=== PATIENT | female | born 1980 | race Hispanic/Latino ===

== ENCOUNTER 2018-11-05 06:27 | Day surgery (SDC) | payer BC ==
[2018-11-05] MEDS ORDERED: NACL 0.9% 500 ML 500 ML IV SCH (07:00)
[2018-11-05 07:10] LABS: Basophils # (Auto) 0.1 K/mm3 (0.0-0.1); Basophils % (Auto) 1.4 % (0.0-1.8); Eosinophils # (Auto) 0.1 K/mm3 (0.0-0.4); Eosinophils % (Auto) 2.9 % (0.0-4.3); Hematocrit 38.7 % (30.3-42.9); Hemoglobin 13.3 gm/dl (10.1-14.3); Lymphocytes # (Auto) 1.4 K/mm3 (1.2-5.4); Lymphocytes % (Auto) 33.1 % (13.4-35.0); Mean Corpuscular HGB Conc 34 % (30-34); Mean Corpuscular Volume 90 fl (79-97); Monocytes # (Auto) 0.4 K/mm3 (0.0-0.8); Monocytes % (Auto) 9.8 % (0.0-7.3); Platelet Count 362 K/mm3 (140-440); Red Cell Distribution Width 14.1 % (13.2-15.2)
[2018-11-05 07:26] LABS: INR 0.96 (0.87-1.13); Partial Thromboplastin Time 24.1 Sec. (24.2-36.6)
[2018-11-05 07:29] LABS: BUN/Creatinine Ratio 24; Blood Urea Nitrogen 19 mg/dL (7-17); Calcium 8.9 mg/dL (8.4-10.2); Hemolysis Index 8
[2018-11-05] MEDS ORDERED: HEPARIN/NS 5000 UNIT/500ML(CATH LAB) 1,000 ML IR ONE (08:22)
[2018-11-05] MEDS ORDERED: TORADOL ONE (08:23)
--- NOTE | 2018-11-05 08:42 | Short Stay Summary ---
Short Stay Documentation Date of service: 11/05/18 - History Principal diagnosis: Venous compression Past Medical History: other (venous hypertension) Past Surgical History: Other (superficial venous procedures) Social history: , lives with family - Allergies and Medications Current Medications: Allergies Cephalosporins Allergy (Mild, Verified 11/05/18 07:07) Rash Penicillins Allergy (Mild, Verified 11/05/18 07:07) Rash levofloxacin [From Levaquin] Allergy (Verified 11/05/18 07:07) Rash meperidine [From Demerol] Adverse Reaction (Verified 11/05/18 07:08) Vomiting promethazine [From Phenergan] Adverse Reaction (Verified 11/05/18 07:08) Vomiting Home Medications Medication Instructions Recorded Confirmed Last Taken Type No Known Home Medications [No 11/05/18 11/05/18 Unknown History Reported Home Medications] Active Medications Sodium Chloride (Nacl 0.9% 500 Ml) 500 mls @ 50 mls/hr IV DIRECT MARLIN Last Admin: 11/05/18 07:33 Dose: 50 mls/hr Documented by: - Physical exam General appearance: no acute distress Integumentary: no rash, no growths HEENT: Atraumatic Lungs: Normal air movement Breasts: deferred Heart: Regular rate Gastrointestinal: normal Female Genitourinary: deferred Rectal Exam: deferred Extremities: abnormal (edema, bulging varicose veins) Neurological: Normal gait, Normal speech, Normal tone - Brief post op/procedure progress note Date of procedure: 11/05/18 Pre-op diagnosis: Venous compression Post-op diagnosis: same Procedure: BLE venogram, IVUS, venoplasty and stent placement Anesthesia: local Surgeon: ROSA BEATTY Pathology: none Condition: stable - Disposition Condition at discharge: Good Disposition: [id number] TO HOME OR SELFCARE Short Stay Discharge Plan Activity: advance as tolerated Weight Bearing Status: Weight Bear as Tolerated Diet: regular Wound: keep clean and dry, per your surgeon's advice Follow up with: PRIMARY CARE, [Primary Care Provider] - 7 Days
[2018-11-05] MEDS: VERSED ONE ×2 (08:57→09:13)
[2018-11-05] MEDS: SUBLIMAZE ONE ×2 (08:57→09:18)
[2018-11-05] MEDS: XYLOCAINE 2% INFILTRATI ONE ×2 (09:00→09:03)
--- NOTE | 2018-11-05 09:34 | Operative Report ---
Operative Report Operative Report: Exam: Bilateral lower extremity venogram, intravascular ultrasound, venoplasty with stent placement Clinical indication: Patient with a history of venous hypertension of bilateral lower extremities secondary to extrinsic compression of the arteries overlying the iliac veins. Date: 11/05/2018 Procedure: Following an expiration of the risks, benefits and alternatives; written informed consent was obtained. The patient was brought to the injury suite and placed in supine position on the examination table. Initial evaluation of her legs demonstrated patent greater saphenous veins bilaterally. The patient's legs were prepped and draped in usual sterile fashion. 1% lidocaine was used for anesthesia. Under ultrasound guidance, the right greater saphenous vein was cannulated approximately 4 cm below the junction with an 18-gauge needle. A 0.035 guidewire was advanced centrally. The needle was removed and a 5 Bulgarian sheath placed. Access to the proximal left greater saphenous vein was obtained in a similar fashion and an additional 5 Bulgarian sheath placed. Contrast was injected through bilateral she simultaneously. This demonstrated a prompt appearance of numerous pelvic varicosities and reflux into the internal iliac veins bilaterally secondary to significant extrinsic compression of common iliac vein extending into external iliac vein bilaterally. A decision was made to evaluate further with intravascular ultrasound. The sheaths were upsized over the guidewires to 10 [place] sheaths bilaterally. Intervascular ultrasound was first performed in the right followed by the left. Image vessels including the IVC, right common iliac vein, right external iliac vein, right common femoral vein, left common iliac vein, left external iliac vein and left common femoral vein. The IVC is widely patent. The right common iliac vein demonstrates stenosis in the distal portion with extension into the external iliac vein. The stenosis is approximately 70% on the right. The right common femoral vein is patent. The left common iliac vein demonstrates stenosis in the distal portion with extension into the left external iliac vein. The stenosis is approximately 80% on the left. The left common vein is patent. A 16 x 90 mm wall stent was advanced through the right sheath and positioned to extend from the mid common iliac vein into the distal external iliac vein. A second 16 x 90 mm wall stent was deployed through the left sheath in position to extend from the mid common iliac vein into the distal external iliac vein. The stents were seated using 14 mm balloons. Post stent deployment imaging demonstrated risk flow throughout iliac veins and nonvisualization of the pelvic collaterals. The guidewires were removed and hemostasis achieved using manual compression. Sterile compression dressings were applied. The patient tolerated the procedure well. There were no immediate post procedure complications. Conscious sedation was performed under the guidance of radiologic nursing. Continuous cardiopulmonary monitoring was utilized. Impression: 1) Bilateral lower extremity venogram demonstrated significant compression of the distal common iliac veins with extension into the external iliac veins bilaterally. 2) Intravascular ultrasound of the IVC, right common iliac vein, right external iliac vein, right common femoral vein, left common iliac vein, left external iliac vein and left common femoral vein. This demonstrates 70% stenosis of the right common iliac vein distally extension into the right external iliac vein and 80% stenosis in the distal left common iliac vein with extension into the left external iliac vein. 3) Placement of 16 x 90 mm wall stents with extension from the mid common iliac veins into the external iliac veins bilaterally with residual less than 10% stenosis.
[2018-11-05 11:07] VITALS: BP 115/66
== END 2018-11-05 11:00 | disposition home or self-care (01) ==
LOC: CATHLABREC 06:27
PROVIDERS: ATTEND Radiology Diagnostic Radiology
DX: I87.1 Compression of vein (principal); Z88.0 Allergy status to penicillin; Z79.899 Other long term (current) drug therapy; Z98.890 Other specified postprocedural states; Z90.49 Acquired absence of other specified parts of digestive tract; Z98.51 Tubal ligation status; Z79.01 Long term (current) use of anticoagulants; Z88.8 Allergy status to other drugs, medicaments and biological substances
CPT/HCPCS: 36415; 37238; 37239; 37252; 37253; 75822; 76937; 80048; 85025; 85610; 85730; 99156; 99157; C1725; C1753; C1769; C1876; C1894; J1644; J1885; J2250; J3010; J7040; Q9967